=== PATIENT | female | born 1965 | race Caucasian/White ===

== ENCOUNTER → 2022-04-25 14:58 | Outpatient (CLI) | payer OTHER, SELFPAY ==
--- NOTE | ~2022-04-25 | MR_ITS ---
EXAMINATION: MR knee LT wo con DATE: 04/25/2022 16:02 INDICATION: Acute left knee pain following a fall 2 months ago. TECHNIQUE: Magnetic resonance imaging (MRI) of the left knee was performed without intravenous contra st. Sequences included axial PD-weighted FS FSE, coronal PD-weighted FSE and PD-weighted FS FSE, sagi ttal PD-weighted FSE, and sagittal T2-weighted FS FSE. COMPARISON: None. FINDINGS: Medial compartment: Complex tear of the posterior horn and body of the medial meniscus. Parrot beak type tear of the post erior horn. Oblique undersurface type tear that also displays a horizontal component at the junction of the posterior horn and body. Large area of full-thickness cartilage loss on the femoral and tibial sides of the medial compartment. Moderate osteophytosis. Lateral compartment: 5 mm area of full-thickness cartilage loss at the lateral condylar notch. Moderate osteophytosis. Int act meniscus. Patellofemoral compartment: Moderate diffuse cartilage loss. Moderate osteophytosis. The retinacula are intact. Ligaments and tendons: Abnormal signal undercuts the origin of the ACL. The MCL, PCL and LCL are intact. Remaining flexor an d extensor tendons are intact. Fluid: Small volume joint fluid. Moderate Sutherland's cyst. Osseous/other: No suspicious focal or diffuse marrow signal. IMPRESSION: 1. Low-grade partial tear at the origin of the ACL. 2. Complex tears of the posterior horn and body, medial meniscus. 3. Tricompartmental osteoarthritic change, severe in the medial compartment. 4. Moderate Sutherland's cyst. Reviewed, dictated and finalized at location [facility] [employer]
== END ==
PROVIDERS: PCP Physician Assistant; Visit Provider Physician Assistant
DX: S83.512A Sprain of anterior cruciate ligament of left knee, initial encounter (principal); S83.232A Complex tear of medial meniscus, current injury, left knee, initial encounter; M17.12 Unilateral primary osteoarthritis, left knee; M71.22 Synovial cyst of popliteal space [Baker], left knee; T14.90XA Injury, unspecified, initial encounter
CPT/HCPCS: 73721